=== PATIENT | female | born 1950 | race Caucasian/White ===

== ENCOUNTER 2017-12-10 09:36 | Outpatient (CLI) | payer MEDICARE, MEDICAID ==
--- NOTE | 2017-12-10 15:40 | MMO ---
MAMMOGRAM DIGITAL SCREENING BILATERAL: DATE: 12/10/17 HISTORY: 67-year-old female for routine bilateral screening mammogram. COMPARISON: 08/20/16 and 07/27/12. TECHNIQUE: Digital mammographic views. Computer-aided detection (CAD) utilized. FINDINGS: There are scattered areas of fibroglandular density. There is no evidence of suspicious mass, suspicious calcifications, or architectural distortion. The re is no significant interval change since the prior mammogram. IMPRESSION: 1. BIRADS 1 - Negative. 2. Recommendation: routine bilateral annual screening mammogram (unless the patient develops suspici ous clinical findings that would warrant earlier imaging follow up). dalila [] POS: [facility]
== END 2017-12-10 09:37 | disposition home or self-care (01) ==
LOC: SCSMAMMO 09:36
PROVIDERS: ATTEND Family Medicine
DX: Z12.31 Encounter for screening mammogram for malignant neoplasm of breast (principal)
CPT/HCPCS: 77067

== ENCOUNTER 2018-03-08 13:53 | Outpatient (CLI) | payer MEDICARE, MEDICAID ==
--- NOTE | 2018-03-08 15:54 | RAD ---
LEFT SHOULDER THREE VIEWS: History: M79.602, pain. Comparison: None. FINDINGS: There is a calcific tendinosis rotator cuff seen best on the internal image. No acute fracture or mal alignment. IMPRESSION: Mild calcific tendinosis. POS: [facility]
--- NOTE | 2018-03-08 15:57 | RAD ---
CERVICAL SPINE AP AND LATERAL STANDARD: Date: 03/08/18 HISTORY: N79.602, pain. COMPARISON: None. FINDINGS: There is extensive atherosclerotic plaque of the carotid arteries. No fracture. No malalignment. Moderate degenerative disc space height loss at C5-6 and C6-7. The open-mouth odontoid view is normal. IMPRESSION: Degenerative changes. No acute fracture or malalignment. POS: [facility]
== END 2018-03-08 13:54 | disposition home or self-care (01) ==
LOC: SCSRAD 13:53
PROVIDERS: ATTEND Family Medicine
DX: M79.602 Pain in left arm (principal); M47.892 Other spondylosis, cervical region; M75.32 Calcific tendinitis of left shoulder
CPT/HCPCS: 72040

== ENCOUNTER 2018-10-17 11:20 | Inpatient (IN) | payer MEDICARE, MEDICAID ==
[2018-10-17 12:19] LABS: #Basophils 0.1 thou/uL (0.0-0.2); #Eosinphils 0.1 thou/uL (0.0-0.7); #Lymphocytes 2.9 thou/uL (1.20-3.40); #Monocytes 0.7 thou/uL (0.11-0.59); #Neutrophils 3.7 thou/uL (1.40-6.50); %Eosinophils 0.7 % (0.0-10.0); %Lymphocytes 38.9 % (21.0-51.0); %Monocytes 9.4 % (0.0-10.0); %Neutrophils 49.9 % (42.0-75.0); Mean Corpuscular HGB CONC 32.4 g/dL (32.0-36.0); Mean Corpuscular Hemoglobin 27.5 pg (27.0-31.0); Mean Corpuscular Volume 84.8 fL (78.0-98.0); Mean Platelet Volume 7.3 fL (7.4-10.4); Platelet Count 245 thou/uL (130-400); RBC Distribution Width 13.4 % (11.5-14.5); White Blood Cell (WBC) Count 7.5 thou/uL (4.8-10.8)
[2018-10-17 12:36] LABS: CKMB 1.1 ng/mL (0-6.6); Troponin I Less than 0.010 ng/mL (< 0.028)
--- NOTE | 2018-10-17 12:37 | RAD ---
CHEST ONE VIEW: INDICATIONS: History of chest pain. Emergency room exam. COMPARISON: 07/09/2013 FINDINGS: The lungs are clear. The cardiomediastinal silhouette is within normal limits. No acute osseous abn ormality is evident. IMPRESSION: No acute cardiopulmonary abnormality. POS: [facility]
[2018-10-17 12:38] LABS: Bilirubin Small (Negative); Blood, Urine Trace (Negative); Glucose, Urine (Dipstick) Negative (Negative); Leukocyte Small (Negative); Nitrite Negative (Negative); Protein, Urine (Dipstick) Negative (Neg-Trace); Urobilinogen 0.2 mg/dL (0.2-1.0); pH, Urine 5.5 (5.0-9.0)
[2018-10-17 12:39] LABS: Clarity Hazy (Clear); Specific Gravity, Urine 1.024 (1.002-1.036)
[2018-10-17 12:40] LABS: Bacteria/HPF 1+ HPF (None Seen); RBC/HPF 0-3 HPF (0-3); Squamous Epithelial 0-3 HPF (0-3)
[2018-10-17 12:45] LABS: Anion Gap 14 mmol/L (10-20); BUN (Urea Nitrogen) 26 mg/dL (9.8-20.1); Calc. Creatinine Clearance 0 mL/min (70-130); Calcium 9.6 mg/dL (7.8-10.44); Carbon Dioxide 17 mmol/L (23-31); Chloride 110 mmol/L (98-107); Estimated GFR-MDRD 32; Glucose 179 mg/dL (80-115); Sodium 134 mmol/L (136-145)
[2018-10-17 12:47] LABS: Potassium 6.6 mmol/L (3.5-5.1)
[2018-10-17] MEDS ORDERED: Sodium Chloride 0.9% 100 ML ONE (12:57)
[2018-10-17] MEDS ORDERED: cefTRIAXone\\ROCEPHIN 1 GM VIAL ONE (12:57)
[2018-10-17 14:43] LABS: Anion Gap 10 mmol/L (10-20); BUN (Urea Nitrogen) 22 mg/dL (9.8-20.1); Calc. Creatinine Clearance 0 mL/min (70-130); Calcium 8.4 mg/dL (7.8-10.44); Carbon Dioxide 17 mmol/L (23-31); Chloride 116 mmol/L (98-107); Estimated GFR-MDRD 42; Glucose 109 mg/dL (80-115); Sodium 136 mmol/L (136-145)
[2018-10-17] MEDS ORDERED: Calcium Gluc 4.6 MEQ/10 ML (100 MG/ML) ONE (14:47)
[2018-10-17] MEDS ORDERED: Insulin Regular 300 UNITS/3 ML VIAL ONE (14:47)
[2018-10-17] MEDS ORDERED: Dextrose 50% Abboject 50 ML SYRINGE ONE (14:55)
[2018-10-17] MEDS ORDERED: Sodium Bicarb 50 MEQ/50 ML Abboject 8.4% SYRINGE ONE ×2 (15:07→15:08)
[2018-10-17 16:56] LABS: Anion Gap 10 mmol/L (10-20); BUN (Urea Nitrogen) 21 mg/dL (9.8-20.1); Calc. Creatinine Clearance 0 mL/min (70-130); Calcium 8.9 mg/dL (7.8-10.44); Carbon Dioxide 20 mmol/L (23-31); Chloride 117 mmol/L (98-107); Estimated GFR-MDRD 45; Glucose 78 mg/dL (80-115); Potassium 6.1 mmol/L (3.5-5.1); Sodium 141 mmol/L (136-145)
[2018-10-17 19:36] VITALS: BMI 34.3
[2018-10-17] MEDS: Sodium Bicarbonate 150 MEQ in Dextrose 5% in Water 1,000 ML IV SCH (20:10)
[2018-10-17 20:49] LABS: Anion Gap 11 mmol/L (10-20); BUN (Urea Nitrogen) 21 mg/dL (9.8-20.1); Calc. Creatinine Clearance 50 mL/min (70-130); Calcium 8.8 mg/dL (7.8-10.44); Carbon Dioxide 20 mmol/L (23-31); Chloride 115 mmol/L (98-107); Estimated GFR-MDRD 40; Glucose 118 mg/dL (80-115); Sodium 139 mmol/L (136-145)
[2018-10-17 21:01] LABS: Potassium 6.7 mmol/L (3.5-5.1)
[2018-10-18 01:08] LABS: Anion Gap 10 mmol/L (10-20); BUN (Urea Nitrogen) 22 mg/dL (9.8-20.1); Calc. Creatinine Clearance 54 mL/min (70-130); Calcium 8.7 mg/dL (7.8-10.44); Carbon Dioxide 25 mmol/L (23-31); Chloride 110 mmol/L (98-107); Estimated GFR-MDRD 44; Glucose 141 mg/dL (80-115); Potassium 5.3 mmol/L (3.5-5.1); Sodium 140 mmol/L (136-145)
[2018-10-18] MEDS: Sodium Bicarbonate 150 MEQ in Dextrose 5% in Water 1,000 ML IV SCH (03:49)
[2018-10-18] MEDS: Sodium Chloride 0.9% 1,000 ML IV SCH (05:44)
[2018-10-18 07:04] LABS: Anion Gap 11 mmol/L (10-20); BUN (Urea Nitrogen) 20 mg/dL (9.8-20.1); Calc. Creatinine Clearance 61 mL/min (70-130); Calcium 8.3 mg/dL (7.8-10.44); Carbon Dioxide 26 mmol/L (23-31); Chloride 108 mmol/L (98-107); Estimated GFR-MDRD 50; Glucose 162 mg/dL (80-115); Potassium 4.7 mmol/L (3.5-5.1); Sodium 140 mmol/L (136-145)
--- NOTE | 2018-10-18 07:51 | CON ---
DATE OF CONSULTATION: 10/17/2018 TYPE OF CONSULTATION: Nephrology CONSULTING PHYSICIAN: Dr. Arrieta. REASON FOR CONSULTATION: Severe hyperkalemia. REASON FOR ADMISSION: Weakness. HISTORY OF PRESENT ILLNESS: This is a 68-year-old female with history of hypertension, type 2 diabetes, hypothyroidism, hyperlipidemia, recent history of UTI, and chronic pain, who came to the hospital with weakness and multiple other complaints of fever, chills, and lightheadedness. The patient had 1 episode of diarrhea a few days back. The patient has been taking meloxicam, lisinopril, and Bactrim, which was stopped today, but she has been taking for last 5 days, started having weakness, feeling like her legs are giving away, and was evaluated and was found to have a potassium of 7.0. She was treated medically and her potassium got better to 6.1. Creatinine was 1.2. Nephrology was consulted. PAST MEDICAL HISTORY: Positive for hypertension, hypothyroidism, hyperlipidemia, chronic pain, and neuropathy. PAST SURGICAL HISTORY: Back surgery, carpel tunnel surgery, cholecystectomy, and tubal ligation. HOME MEDICATIONS: 1. Lyrica. 2. Levothyroxine. 3. Duloxetine. 4. Meloxicam. 5. Acyclovir. 6. Metoprolol. 7. Allopurinol. 8. Crestor. 9. Metformin. 10. VESIcare. 11. Lisinopril. 12. Diazepam. 13. Centrum. 14. Bactrim. ALLERGIES: ACTOS AND DEMEROL. SOCIAL HISTORY: No smoking, alcohol, or illicit drug use. FAMILY HISTORY: No history of any kidney disease. REVIEW OF SYSTEMS: CONSTITUTIONAL: Negative for weight loss or gain, ability to conduct usual activities. SKIN: Negative for rash, itching. EYES: Negative for double vision, pain. ENT/MOUTH: Negative for nose bleeding, neck stiffness, pain, tenderness. CARDIOVASCULAR: Negative for palpitations, dyspnea on exertion, orthopnea. RESPIRATORY: Negative for shortness of breath, wheezing, cough, hemoptysis, fever or night sweats. GASTROINTESTINAL: Negative for poor appetite, abdominal pain, heartburn, nausea, vomiting, constipation, or diarrhea. GENITOURINARY: Negative for urgency, frequency, dysuria, nocturia. MUSCULOSKELETAL: Negative for pain, swelling. NEUROLOGIC/PSYCHIATRIC: Negative for anxiety, depression. ALLERGY/IMMUNOLOGIC: Negative for skin rash, bleeding tendency. PHYSICAL EXAMINATION: GENERAL: Reveals an obese white female, in no apparent distress. VITAL SIGNS: Temperature 99, pulse 68, respiratory rate 16, and blood pressure 137/65. HEENT: Atraumatic and normocephalic. Oral mucosa is moist. NECK: Supple. CARDIOVASCULAR: S1 and S2 heard. RESPIRATORY: Clear. GASTROINTESTINAL: Abdomen is soft. MUSCULOSKELETAL: . DERMATOLOGIC: No skin rash. NEUROLOGIC: Alert and awake. PSYCHIATRIC: Mood and affect normal. LABORATORY DATA: Hemoglobin is 11.0. Potassium is 6.7, BUN is 21, creatinine is 1.3. ASSESSMENT AND PLAN: 1. Severe hyperkalemia. Agree with medical management. No acute indication for dialysis. Her creatinine is slightly elevated, most likely from Bactrim. Agree with holding Bactrim, meloxicam, and lisinopril and limit potassium intake. Agree with bicarb drip also. 2. Metabolic acidosis, agree with bicarb drip. 3. Acute kidney injury, most likely elevated creatinine from Bactrim. 4. Mild anemia. 5. Hypertension, stable. 6. Edema, controlled. 7. Urinary tract infection. Follow up cultures and continue antibiotics. 8. Continue close monitoring. Check BMP q.4 hours. Limit potassium intake. Continue bicarb drip and we will follow. Thank you for the consult. Job ID: [id number]
[2018-10-18] MEDS ORDERED: Fluticasone Propionate Nasal Spray 16 gm Bottle NASAL PRN (08:45)
[2018-10-18] MEDS ORDERED: Sodium Chloride 0.65% Nasal 44 ML BOT EA NARE PRN (08:47)
[2018-10-18] MEDS ORDERED: Ondansetron PF 4 MG/2 ML Vial IVP PRN (08:47)
[2018-10-18] MEDS ORDERED: Calcium Carbonate 500 MG ChewTAB PO PRN (08:47)
[2018-10-18] MEDS ORDERED: Senokot S 8.6-50 MG TAB PO PRN (08:47)
[2018-10-18] MEDS ORDERED: Nitroglycerin 0.4 MG TAB (25 Tab Bottle) SL PRN (08:47)
[2018-10-18] MEDS ORDERED: Bisacodyl 5 MG TAB PO PRN (08:47)
[2018-10-18] MEDS ORDERED: hydrALAZINE 20 MG/ML VIAL SLOW IVP PRN (08:47)
[2018-10-18] MEDS ORDERED: Benzonatate 100 MG CAP PO PRN (08:47)
[2018-10-18] MEDS ORDERED: Non-Formulary Item 1 EACH (Esomeprazole Magnesium [Nexium] 40 MG) PO SCH (09:00)
[2018-10-18 09:11] LABS: Anion Gap 11 mmol/L (10-20); BUN (Urea Nitrogen) 17 mg/dL (9.8-20.1); Calc. Creatinine Clearance 62 mL/min (70-130); Calcium 8.4 mg/dL (7.8-10.44); Carbon Dioxide 25 mmol/L (23-31); Chloride 107 mmol/L (98-107); Estimated GFR-MDRD 51; Glucose 142 mg/dL (80-115); Potassium 4.4 mmol/L (3.5-5.1); Sodium 139 mmol/L (136-145)
[2018-10-18] MEDS ORDERED: TROSPIUM 20 MG TABLET PO SCH (10:30)
[2018-10-18] MEDS ORDERED: Metoprolol Tartrate 25 MG TAB PO SCH (10:30)
[2018-10-18] MEDS ORDERED: DULoxetine 60 MG CAP PO SCH (10:30)
[2018-10-18] MEDS ORDERED: Acyclovir 400 mg Tablet PO SCH (10:30)
[2018-10-18] MEDS ORDERED: Multivitamin W/ Minerals 1 TAB PO SCH (10:30)
[2018-10-18] MEDS: Acetaminophen 500 MG TAB PO PRN (11:03)
[2018-10-18] MEDS: cefTRIAXone\\ROCEPHIN 1 GM in Sodium Chloride 0.9% 100 ML IVPB SCH (12:54)
[2018-10-18] MEDS: Pregabalin 50 MG CAP PO SCH ×2 (14:20→20:01)
[2018-10-18 14:47] LABS: Anion Gap 12 mmol/L (10-20); BUN (Urea Nitrogen) 15 mg/dL (9.8-20.1); Calc. Creatinine Clearance 67 mL/min (70-130); Calcium 8.1 mg/dL (7.8-10.44); Carbon Dioxide 25 mmol/L (23-31); Chloride 109 mmol/L (98-107); Estimated GFR-MDRD 55; Glucose 131 mg/dL (80-115); Potassium 4.9 mmol/L (3.5-5.1); Sodium 141 mmol/L (136-145)
--- NOTE | 2018-10-18 19:10 | HP ---
PRIMARY CARE PHYSICIAN: Dr. Lou. CHIEF COMPLAINT: Generalized weakness and lightheadedness of 1-week duration. HISTORY OF PRESENT ILLNESS: Ms. Farmer is a 68-year-old female with past medical history of hypertension, hypothyroidism, dyslipidemia, chronic pain, and neuropathy, who presented to the emergency room with complaints of weakness and subjective complaints of fever, chills, and lightheadedness. She reports that she recently had diarrhea a few days back. She gets urinary tract infections frequently. She has had bladder sling many years ago by Dr. An. Recently, she had another UTI and was given Bactrim for the treatment. She also has been taking meloxicam and lisinopril for the chronic aches and pains. Yesterday, she felt extremely weak and the symptoms have started about 5 days ago. She came to the ER and was found to have a potassium of 7.0. She was treated medically and her potassium got better to 6.1. Creatinine was also elevated at 1.2. Nephrology was consulted. She is being admitted for further evaluation. Fortunately, the patient has been up on the floor since last night and Nephrology has seen the patient and her potassium has improved to 4.9 with intervention and her renal failure has resolved. Her urinalysis and culture from 10/06/2018 showed E. coli, which was unfortunately resistant to the Bactrim she has received for so many days lending her with acute renal failure. PAST MEDICAL HISTORY: 1. Diabetes mellitus. 2. Hypothyroidism. 3. Hypertension. 4. Dyslipidemia. PAST SURGICAL HISTORY: 1. Back surgery. 2. Left TKR. 3. Carpal tunnel surgery x2. 4. Cholecystectomy. 5. Tubal ligation. 6. Bladder sling. PSYCHIATRIC HISTORY: Anxiety and bipolar disorder with depression. SOCIAL HISTORY: She lives by herself and has no history of drug, tobacco, or alcohol abuse. FAMILY HISTORY: No significant family history of any heart disease or stroke. Diabetes runs in the family. ALLERGIES: INCLUDE ACTOS AND DEMEROL. CURRENT MEDICATIONS: As listed below; 1. Ropinirole 2 mg at bedtime. 2. Metformin 500 p.o. b.i.d. 3. Bactrim 1 tablet p.o. b.i.d. 4. VESIcare 10 mg daily. 5. Crestor 10 mg daily. 6. Seroquel XR 50 mg daily. 7. Lyrica 100 mg p.o. daily. 8. Multivitamin daily. 9. Lopressor tartrate 25 b.i.d. 10. Meloxicam 15 mg daily. 11. Lisinopril 5 mg daily. 12. Levothyroxine 100 mcg daily. 13. Flonase daily b.i.d. p.r.n. 14. Nexium 40 mg daily. 15. Valium 5 mg p.o. b.i.d. 16. Cymbalta 60 mg daily. 17. Acyclovir 400 mg daily for suppressive therapy for oral sores. REVIEW OF SYSTEMS: A 12-point review of system is done. It is negative except for those mentioned in the history and physical. CODE STATUS: Full code discussed with the patient. LABORATORY EXAMINATION: CBC shows WBCs 7.5 and hemoglobin 11. Serum chemistries; initially, her potassium was 7.0, which has improved to 4.9. Her creatinine was 1.59 upon presentation, which is improved to 1.0. Troponin and CK-MB normal. Urinalysis; +1 bacteria, leukocyte esterase, and multiple wbc's. Chest x-ray, by my review, has no evidence of pleural effusion, edema, or infiltrate. PHYSICAL EXAMINATION: VITAL SIGNS: Most recent vital signs; temperature 98.9, pulse is 73, respirations 18, saturating 98% on room air, and blood pressure 160/71. GENERAL: She appears somewhat pale, weak, and tired, but in no acute distress. She is awake, alert, and oriented x3. HEENT: Mucous membrane is moist and pink. No oropharyngeal exudate or erythema. Head is normocephalic and atraumatic. Pupils equal and reactive to light and accommodation. Extraocular movements intact. NECK: Supple without any lymphadenopathy, JVD, or bruits. CHEST: Clear to auscultation without any wheezing, rales, or rhonchi. HEART: Rate and rhythm are regular without any murmurs, rubs, or gallops. ABDOMEN: Soft, nontender, and nondistended with positive bowel sounds. EXTREMITIES: Free of any cyanosis, clubbing, or edema. NEUROLOGIC: Nonfocal. SKIN: Free of any rashes or bruises. Feels warm and dry to touch. PSYCHIATRIC: Normal affect. IMPRESSION AND PLAN: 1. Hyperkalemia and acute renal insufficiency. This is likely iatrogenic from the use of meloxicam, lisinopril, and Bactrim on top of that. Her numbers have much improved with holding these medications and resuscitating her with IV fluids. She is also hemodynamically stable. We appreciate Nephrology input with this. Continue with normal saline at 50 mL per hour for now. I will continue to hold the lisinopril and stop her metformin, meloxicam, and Bactrim. 2. Urinary tract infection. Unfortunately, the Escherichia coli from the urine culture on 10/06 was resistant to bactrim. A new urine culture has been submitted and she has been started on Rocephin, to which the bacteria was sensitive to. We will follow the final culture results. 3. History of hypertension. Currently well controlled. We will restart her home medications. 4. History of peripheral neuropathy. We will restart her Lyrica and Cymbalta. I am not sure why she is on so many medications for neuropathy and yet seems to be poorly controlled. 5. Diabetes mellitus type 2. We will put her insulin sliding scale as we are holding her metformin for acute renal insufficiency. Accu-Cheks before meals and bedtime have been ordered. 6. Fibromyalgia. 7. Bipolar disorder. Restart home medications. 8. Dyslipidemia. Restart her home medications. 9. Code status: Full code discussed with the patient. 10. History of frequent urinary tract infections. DISPOSITION: Ms. Farmer has been admitted to the hospital with acute kidney insufficiency and hyperkalemia, which have since resolved. She will be transferred to medical floor. Estimated length of stay at this time is at least 2 to 3 midnights. Further management will depend upon her clinical course. Job ID: [id number]
[2018-10-18] MEDS: Metoprolol Tartrate 25 MG TAB PO SCH (20:01)
[2018-10-18] MEDS: TROSPIUM 20 MG TABLET PO SCH (20:03)
[2018-10-18] MEDS ORDERED: ROPINIROLE HCL 2 MG PO SCH ×2 (21:00)
[2018-10-18] MEDS ORDERED: QUEtiapine Fumarate ER 50 MG TAB PO SCH (21:00)
[2018-10-19] MEDS: Acetaminophen 500 MG TAB PO PRN ×2 (00:09→08:22)
[2018-10-19] MEDS: Sodium Chloride 0.9% 1,000 ML IV SCH (00:12)
[2018-10-19 08:00] LABS: Anion Gap 10 mmol/L (10-20); BUN (Urea Nitrogen) 12 mg/dL (9.8-20.1); Calc. Creatinine Clearance 62 mL/min (70-130); Carbon Dioxide 24 mmol/L (23-31); Chloride 110 mmol/L (98-107); Estimated GFR-MDRD 51; Glucose 112 mg/dL (80-115); Potassium 4.6 mmol/L (3.5-5.1); Sodium 139 mmol/L (136-145)
[2018-10-19] MEDS: TROSPIUM 20 MG TABLET PO SCH (08:17)
[2018-10-19] MEDS: Pregabalin 50 MG CAP PO SCH ×2 (08:17→16:04)
[2018-10-19] MEDS: Metoprolol Tartrate 25 MG TAB PO SCH (08:19)
[2018-10-19] MEDS ORDERED: DULoxetine 60 MG CAP PO SCH (09:00)
[2018-10-19] MEDS ORDERED: Acyclovir 400 mg Tablet PO SCH (09:00)
[2018-10-19] MEDS ORDERED: Levothyroxine Sodium 100 MCG TAB PO SCH (09:00)
[2018-10-19] MEDS ORDERED: Multivitamin W/ Minerals 1 TAB PO SCH (09:00)
[2018-10-19] MEDS ORDERED: Diazepam 5 MG TAB PO PRN (11:24)
[2018-10-19] MEDS ORDERED: Ketorolac Tromethamine 30 MG/ML VIAL IVP SCH (12:30)
[2018-10-19] MEDS ORDERED: Meloxicam 15 MG TAB PO SCH (12:30)
[2018-10-19] MEDS: cefTRIAXone\\ROCEPHIN 1 GM in Sodium Chloride 0.9% 100 ML IVPB SCH (12:52)
--- NOTE | 2018-10-19 13:18 | PRG ---
DATE OF SERVICE: 10/19/2018 SUBJECTIVE: A 68-year-old female is being seen for acute kidney injury. The patient denies any nausea, vomiting, or chest pain. OBJECTIVE: GENERAL: The patient is awake and alert. VITAL SIGNS: Pulse is 72, breathing is 16, and blood pressure 149/89. GENERAL APPEARANCE AND MENTAL STATUS: Fair. HEAD/NECK: Normocephalic. Atraumatic. EYES: EOMI. No deformity. EARS: Clear. No ulcers. NOSE: Intact. No lesions. MOUTH: Clear. No discharge. THROAT: Clear. No exudate. LUNGS: Clear. No crackles. CARDIAC: S1, S2. No rub. ABDOMEN: Benign. Bowel sounds positive. GENITALIA/RECTUM: Min absent. BACK/EXTREMITIES: Edema 0+. NEUROLOGICAL: Alert and motor intact. SKIN: LYMPHATICS: LABORATORY DATA: Hemoglobin 11. Creatinine is 1.0. ASSESSMENT AND PLAN: 1. Acute kidney injury, resolved. 2. Hypertension, stable. 3. Anemia, stable. 4. Medications based on GFR as appropriate. I will sign off on this patient. Please reconsult as needed. Job ID: [id number]
[2018-10-19 16:19] VITALS: BP 123/60; TEMP 98.8
--- NOTE | 2018-10-19 17:57 | DIS ---
DATE OF ADMISSION: 10/17/2018 DATE OF DISCHARGE: 10/19/2018 DISCHARGE DISPOSITION: Home. FOLLOWUP: 1. Follow up with primary care physician, Dr. Lou in 1 week. 2. Follow up with Nephrology, Dr. Camejo after 1 to 2 weeks. 3. Repeat basic metabolic profile after one week is recommended. Primary care physician advised to follow. ALLERGIES: THE PATIENT IS ALLERGIC TO DEMEROL AND PIOGLITAZONE. THE PATIENT WAS SEEN AND EXAMINED ON THE DAY OF DISCHARGE. DENIES ANY NEW COMPLAINTS. NO CHEST PAIN, SHORTNESS OF BREATH, OR PALPITATIONS. PHYSICAL EXAMINATION: VITAL SIGNS: Showed temperature 98.3, respiration of 19, pulse rate of 70, blood pressure of 137/61. LABORATORY DATA: Lab findings: Potassium on the day of discharge is 4.6, maximum potassium was 7.0. Creatinine on the day of discharge is 1.08, on admission was 1.59. Troponin was negative. Urinalysis showed 4 to 6 wbc's with 1+ bacteria. Urine culture at 24 hours has been negative. Recent urine culture as an outpatient showed E coli, sensitive to cephalosporins. INPATIENT SENIOR STATISTICAL PROGRAMMER: Nephrology, Dr. Camejo. BRIEF HOSPITAL COURSE: The patient is a 68-year-old female with diabetes mellitus, type 2; hypertension; and recent UTI, on Bactrim; presented to the hospital with generalized weakness and lightheadedness of 1 week duration. Workup in the emergency room was consistent with life-threatening hyperkalemia with potassium of 7.0 with acute kidney injury. Bactrim and NITESH inhibitor were discontinued. She was started on sodium bicarbonate along with Kayexalate. She also received insulin, D50, and nebulizer treatment in the emergency room. Her potassium levels have been normal over the past 24 hours. She has been cleared by Nephrology for discharge. NITESH inhibitors have been discontinued per Nephrology recommendation. She would benefit from repeat labs next week. Blood pressure on the day of discharge is 123/60. For this reason, no other blood pressure medications were added. All other home medications have been resumed. She was advised to discontinue NSAIDs. Due to recent UTI, she was started on Omnicef for next 1 week. She was advised to follow up with the primary urologist, Dr. An as scheduled. FINAL DIAGNOSES: 1. Acute hyperkalemia with acute kidney injury, probably exacerbated by NITESH inhibitor and Bactrim. 2. Escherichia coli urinary tract infection. 3. Hypertension. 4. Diabetes mellitus, type 2. 5. Fibromyalgia. 6. Bipolar disorder. 7. Dyslipidemia. 8. Obesity with a BMI of 34.5. 9. Chronic kidney disease, stage 3. 10. Metabolic acidosis secondary to renal failure. 11. Chronic anemia. Plan of care was discussed with the patient in detail. She stated understanding. Job ID: [id number]
[2018-10-20] MEDS ORDERED: Levothyroxine Sodium 100 MCG TAB PO SCH (06:00)
[2018-10-20] MEDS ORDERED: Meloxicam 15 MG TAB PO SCH (09:00)
--- NOTE | 2018-10-20 18:14 | PRG ---
DATE OF SERVICE: 10/18/2018 SUBJECTIVE: Patient was seen and examined at bedside and overnight events noted. Patient denies any shortness of breath or chest pain or palpitation. No history of nausea or vomiting or diarrhea or fever or chills or cramps. OBJECTIVE: GENERAL: This is a well-built female, in no apparent distress. VITAL SIGNS: Temperature . Heart rate . Respiratory rate . Blood pressure 130/61. HEENT: Atraumatic, normocephalic. Oral mucosa is moist NECK: Supple. CARDIOVASCULAR: S1, S2 heard. Rate and rhythm regular. RESPIRATORY: Clear to auscultation. GASTROINTESTINAL: Abdomen is soft. MUSCULOSKELETAL: No tenderness. No edema. DERMATOLOGIC: No skin rash. NEUROLOGIC: Alert and awake and oriented X3. No focal neurologic deficits. Moving all the extremities. PSYCHIATRIC: Mood and affect normal. LABORATORY DATA: Potassium is 4.4, BUN is 17, and creatinine is 1.08. ASSESSMENT AND PLAN: 1. Severe hyperkalemia, much better. 2. Metabolic acidosis . 3. Acute kidney injury . 4. Urinary tract infection. Follow up cultures. 5. Potassium is better. Limit potassium intake and we will follow. Job ID: [id number]
--- NOTE | 2018-10-23 12:17 | EKG ---
Test Reason : Blood Pressure : / mmHG Vent. Rate : 055 BPM Atrial Rate : 055 BPM P-R Int : 128 ms QRS Dur : 076 ms QT Int : 400 ms P-R-T Axes : 038 -05 013 degrees QTc Int : 382 ms Sinus bradycardia Inferior infarct , age undetermined Abnormal ECG Confirmed by BRIANNE AYALA, EMETERIO Carrillo ([id number]), sound editor NAHOMY MARTINEZ ([id number]) on 10/23/2018 12:16:27 PM Referred By: Confirmed By:EMETERIO DECKER MD
== END 2018-10-19 18:41 | disposition home or self-care (01) | DRG 683 ==
LOC: SCSER 11:20 → SCSEROBS 15:09 → 2NO 19:22 → T4-B 10-18 23:41
PROVIDERS: ADMIT Internal Medicine; ATTEND Internal Medicine
DX: N17.9 Acute kidney failure, unspecified (principal); N39.0 Urinary tract infection, site not specified; E87.2 Acidosis; E78.5 Hyperlipidemia, unspecified; E03.9 Hypothyroidism, unspecified; G89.29 Other chronic pain; G62.9 Polyneuropathy, unspecified; Z96.652 Presence of left artificial knee joint; Z79.899 Other long term (current) drug therapy; Z79.84 Long term (current) use of oral hypoglycemic drugs; Z79.51 Long term (current) use of inhaled steroids; E87.5 Hyperkalemia; B96.20 Unspecified Escherichia coli [E. coli] as the cause of diseases classified elsewhere; M79.7 Fibromyalgia; E66.9 Obesity, unspecified; Z68.34 Body mass index [BMI] 34.0-34.9, adult; N18.3 Chronic kidney disease, stage 3 (moderate); E11.22 Type 2 diabetes mellitus with diabetic chronic kidney disease; I12.9 Hypertensive chronic kidney disease with stage 1 through stage 4 chronic kidney disease, or unspecified chronic kidney disease; D64.9 Anemia, unspecified
CPT/HCPCS: 36415; 36416; 71045; 80048; 81003; 81015; 82553; 84484; 85025; 87086; 90471; 90662; 93005; A4353; G0008; G8978-GP-CJ; G8979-GP-CJ; G8980-GP-CJ; J0360; J0696; J1815; J1885; J7050; J7070

== ENCOUNTER 2019-02-02 16:03 | Emergency (ER) | payer MEDICARE, MEDICAID ==
--- NOTE | 2019-02-02 18:08 | RAD ---
FOUR VIEWS LEFT KNEE: 02/02/19 HISTORY: Fall. AP, lateral and both oblique views left knee is obtained. Four views left knee demonstrates a left knee arthroplasty. No evidence of acute fractures or bony le sions seen. The patella is intact. Femoral and tibial components demonstrate no evidence of fractures or loosening. IMPRESSION: Normal four views left knee. POS: [facility]
--- NOTE | 2019-02-02 18:12 | RAD ---
FOUR VIEWS RIGHT KNEE: 02/02/19 HISTORY: Right knee pain. Fall. AP, lateral, and both oblique views right knee obtained. Four views right knee demonstrate joint space narrowing in the medial compartment of the right knee c ompatible with osteoarthritis. No evidence of acute fracture fractures or bony lesions seen. The rust lla is unremarkable. IMPRESSION: No evidence of acute right knee abnormality seen. POS: [facility]
== END 2019-02-02 18:39 | disposition home or self-care (01) ==
LOC: ERS 16:03
DX: S50.312A Abrasion of left elbow, initial encounter (principal); S50.311A Abrasion of right elbow, initial encounter; M25.561 Pain in right knee; M25.562 Pain in left knee; M79.641 Pain in right hand; M79.642 Pain in left hand; F41.9 Anxiety disorder, unspecified; F31.9 Bipolar disorder, unspecified; E78.5 Hyperlipidemia, unspecified; E03.9 Hypothyroidism, unspecified; I10 Essential (primary) hypertension; E11.9 Type 2 diabetes mellitus without complications; W01.0XXA Fall on same level from slipping, tripping and stumbling without subsequent striking against object, initial encounter

== ENCOUNTER 2021-11-19 11:35 | Outpatient (CLI) | payer OTHER | END 2021-11-19 11:36 | disposition home or self-care (01) | LOC: DTY/OP 11:35 | PROVIDERS: ATTEND Student in an Organized Health Care Education/Training Program | DX: E11.29 Type 2 diabetes mellitus with other diabetic kidney complication (principal) | CPT/HCPCS: 97802 ==

== ENCOUNTER 2022-03-14 21:06 | Emergency (ER) | payer MEDICARE, OTHER ==
[2022-03-14] MEDS ORDERED: Boostrix 0.5 ML (Tdap) VIAL ONE (23:44)
== END 2022-03-14 23:55 | disposition home or self-care (01) ==
LOC: ERS 21:06
DX: S61.201A Unspecified open wound of left index finger without damage to nail, initial encounter (principal); E11.9 Type 2 diabetes mellitus without complications; E03.9 Hypothyroidism, unspecified; E78.5 Hyperlipidemia, unspecified; I10 Essential (primary) hypertension; W45.8XXA Other foreign body or object entering through skin, initial encounter
CPT/HCPCS: 90471; 90715

== ENCOUNTER 2022-03-30 15:24 | Emergency (ER) | payer MEDICARE, OTHER ==
[2022-03-30] MEDS ORDERED: HYDROcodone/Acetaminophen 5/325 mg Tablet ONE (16:00)
[2022-03-30] MEDS ORDERED: Ketorolac Tromethamine 30 MG/ML VIAL ONE (17:20)
== END 2022-03-30 18:34 | disposition home or self-care (01) ==
LOC: ERS 15:24
DX: S39.012A Strain of muscle, fascia and tendon of lower back, initial encounter (principal); S70.02XA Contusion of left hip, initial encounter; S70.01XA Contusion of right hip, initial encounter; W18.30XA Fall on same level, unspecified, initial encounter; Y93.E1 Activity, personal bathing and showering; Y92.039 Unspecified place in apartment as the place of occurrence of the external cause; E03.9 Hypothyroidism, unspecified; E78.5 Hyperlipidemia, unspecified; I12.9 Hypertensive chronic kidney disease with stage 1 through stage 4 chronic kidney disease, or unspecified chronic kidney disease; E11.22 Type 2 diabetes mellitus with diabetic chronic kidney disease; E11.40 Type 2 diabetes mellitus with diabetic neuropathy, unspecified; N18.9 Chronic kidney disease, unspecified; Z79.84 Long term (current) use of oral hypoglycemic drugs; Z79.899 Other long term (current) drug therapy
CPT/HCPCS: 72128; 72131; 72192; 93005; 96372; J1885

== ENCOUNTER 2022-06-20 13:41 | Outpatient (CLI) | payer OTHER | END 2022-06-20 13:42 | disposition home or self-care (01) | LOC: BICMAMMO 13:41 | PROVIDERS: ATTEND Student in an Organized Health Care Education/Training Program | DX: Z12.31 Encounter for screening mammogram for malignant neoplasm of breast (principal); Z13.820 Encounter for screening for osteoporosis; M85.851 Other specified disorders of bone density and structure, right thigh; M85.852 Other specified disorders of bone density and structure, left thigh; Z78.0 Asymptomatic menopausal state | CPT/HCPCS: 77063; 77067; 77080 ==

== ENCOUNTER 2022-07-16 18:07 | Emergency (ER) | payer OTHER ==
[2022-07-16 19:30] LABS: #Eosinphils 0.2 thou/uL (0.0-0.7); #Lymphocytes 3.1 thou/uL (1.20-3.40); #Monocytes 0.8 thou/uL (0.11-0.59); #Neutrophils 3.5 thou/uL (1.40-6.50); %Basophils 0.6 % (0.0-1.0); %Eosinophils 2.3 % (0.0-10.0); %Lymphocytes 40.6 % (21.0-51.0); %Neutrophils 46.5 % (42.0-75.0); Hemoglobin 12.5 g/dL (12.0-16.0); Mean Corpuscular HGB CONC 33.7 g/dL (32.0-36.0); Mean Platelet Volume 8.4 fL (7.4-10.4); Platelet Count 195 thou/uL (130-400); RBC Distribution Width 13.9 % (11.5-14.5); Red Blood Cell (RBC) Count 4.16 mill/uL (4.20-5.40); White Blood Cell (WBC) Count 7.6 thou/uL (4.8-10.8)
[2022-07-16 19:52] LABS: ALT (SGPT) 35 U/L (8-55); AST (SGOT) 32 U/L (5-34); Alkaline Phosphatase 122 U/L (40-110); Anion Gap 16 mmol/L (10-20); BUN (Urea Nitrogen) 24 mg/dL (9.8-20.1); Bilirubin, Total 0.4 mg/dL (0.2-1.2); Calc. Creatinine Clearance 0 mL/min (70-130); Carbon Dioxide 25 mmol/L (23-31); Chloride 101 mmol/L (98-107); Estimated GFR 43; Globulin 2.7 g/dL (2.4-3.5); Glucose 210 mg/dL (83-110); Potassium 4.4 mmol/L (3.5-5.1); Protein, Total 6.7 g/dL (5.8-8.1); Sodium 138 mmol/L (136-145)
[2022-07-16 21:42] LABS: Bacteria/HPF None Seen HPF (None Seen); Bilirubin Negative (Negative); Blood, Urine Negative (Negative); Clarity Clear (Clear); Glucose, Urine (Dipstick) Greater than 1000 mg/dL (Negative); Ketone, Urine Negative (Negative); Leukocyte 75 Leu/uL (Negative); Nitrite Negative (Negative); Protein, Urine (Dipstick) Negative (Neg-Trace); RBC/HPF 0-3 HPF (0-3); Squamous Epithelial 0-3 HPF (0-3); Urobilinogen Normal mg/dL (Less than 2); pH, Urine 5.5 (5.0-9.0)
== END 2022-07-16 22:08 | disposition left against medical advice (07) ==
LOC: ERS 18:07
DX: Z53.21 Procedure and treatment not carried out due to patient leaving prior to being seen by health care provider (principal)
CPT/HCPCS: 36415; 36416; 80053; 81003; 81015; 82010; 85025

== ENCOUNTER 2022-11-20 19:02 | Emergency (ER) | payer OTHER ==
[2022-11-20] MEDS ORDERED: HYDROcodone/Acetaminophen 5/325 mg Tablet ONE (19:57)
== END 2022-11-20 20:57 | disposition home or self-care (01) ==
LOC: ERS 19:02
DX: S00.83XA Contusion of other part of head, initial encounter (principal); S00.31XA Abrasion of nose, initial encounter; S50.311A Abrasion of right elbow, initial encounter; E78.00 Pure hypercholesterolemia, unspecified; E03.9 Hypothyroidism, unspecified; I10 Essential (primary) hypertension; W19.XXXA Unspecified fall, initial encounter
CPT/HCPCS: 70450

== ENCOUNTER 2022-11-27 14:16 | Inpatient (IN) | payer OTHER, MEDICAID ==
[2022-11-27 14:55] LABS: #Eosinphils 0.1 thou/uL (0.0-0.7); #Lymphocytes 2.7 thou/uL (1.20-3.40); #Monocytes 0.6 thou/uL (0.11-0.59); #Neutrophils 4.9 thou/uL (1.40-6.50); %Basophils 0.4 % (0.0-1.0); %Eosinophils 1.7 % (0.0-10.0); %Lymphocytes 31.8 % (21.0-51.0); %Monocytes 7.5 % (0.0-10.0); %Neutrophils 58.6 % (42.0-75.0); Hemoglobin 14.4 g/dL (12.0-16.0); Mean Corpuscular HGB CONC 33.4 g/dL (32.0-36.0); Mean Corpuscular Hemoglobin 30.3 pg (27.0-31.0); Mean Corpuscular Volume 90.7 fl (78.0-98.0); Mean Platelet Volume 8.6 fL (7.4-10.4); Platelet Count 153 10x3/uL (130-400); RBC Distribution Width 13.7 % (11.5-14.5); Red Blood Cell (RBC) Count 4.76 mill/uL (4.20-5.40); White Blood Cell (WBC) Count 8.4 10x3/uL (4.8-10.8)
[2022-11-27 15:21] LABS: ALT (SGPT) 59 U/L (8-55); AST (SGOT) 47 U/L (5-34); Albumin 4.3 g/dL (3.4-4.8); Alkaline Phosphatase 175 U/L (40-110); Anion Gap 15 mmol/L (10-20); BUN (Urea Nitrogen) 24 mg/dL (9.8-20.1); Bilirubin, Total 0.8 mg/dL (0.2-1.2); Calc. Creatinine Clearance 0 mL/min (70-130); Calcium 11.1 mg/dL (7.8-10.44); Carbon Dioxide 30 mmol/L (23-31); Chloride 90 mmol/L (98-107); Estimated GFR 35; Globulin 3.7 g/dL (2.4-3.5); Potassium 4.2 mmol/L (3.5-5.1); Sodium 131 mmol/L (136-145)
[2022-11-27 15:48] LABS: Glucose 523 mg/dL (83-110)
[2022-11-27] MEDS ORDERED: HumaLOG 300 UNITS/3 ML VIAL SC PRN (17:26)
[2022-11-27] MEDS ORDERED: Dextrose 50% Abboject 50 ML SYRINGE SLOW IVP PRN (17:26)
[2022-11-27] MEDS ORDERED: Dextrose 5% in Water 1,000 ML IV PRN (17:26)
[2022-11-27] MEDS ORDERED: Insulin Glargine 30 UNITS/0.3 ML VIAL SC SCH (17:44)
[2022-11-27 17:50] LABS: Hemoglobin A1c 11.7 % (4.0-6.0)
[2022-11-27 17:59] LABS: Cardiac Risk 1.9 (Less than 4.5)
[2022-11-27 18:02] LABS: Bilirubin Negative (Negative); Blood, Urine Negative (Negative); Clarity Clear (Clear); Glucose, Urine (Dipstick) Greater than 1000 mg/dL (Negative); Ketone, Urine Negative (Negative); Leukocyte Negative Leu/uL (Negative); Nitrite Negative (Negative); Protein, Urine (Dipstick) Negative (Neg-Trace); Specific Gravity, Urine 1.013 (1.002-1.036); Urobilinogen Normal mg/dL (Less than 2); pH, Urine 5.5 (5.0-9.0)
[2022-11-27 20:03] VITALS: BMI 31.4
[2022-11-27] MEDS: Rosuvastatin 10 MG TAB PO SCH (20:19)
[2022-11-27] MEDS: Pregabalin 75 MG CAP PO SCH (20:19)
[2022-11-27] MEDS: rOPINIRole HCl 2 MG TAB PO SCH (20:19)
[2022-11-27] MEDS: traZODone HCl 50 MG TAB PO SCH (20:19)
[2022-11-27] MEDS: Clotrimazole 1 % Cream 30 GM TUBE TOP SCH (20:20)
[2022-11-27] MEDS: HumaLOG 300 UNITS/3 ML VIAL SC PRN (20:20)
[2022-11-27 21:53] LABS: Anion Gap 12 mmol/L (10-20); BUN (Urea Nitrogen) 19 mg/dL (9.8-20.1); Calc. Creatinine Clearance 62 mL/min (70-130); Calcium 8.4 mg/dL (7.8-10.44); Carbon Dioxide 25 mmol/L (23-31); Chloride 103 mmol/L (98-107); Estimated GFR 56; Glucose 320 mg/dL (83-110); Potassium 3.5 mmol/L (3.5-5.1); Sodium 136 mmol/L (136-145)
[2022-11-28] MEDS: Levothyroxine Sodium 75 MCG TAB PO SCH (04:54)
[2022-11-28] MEDS: HumaLOG 300 UNITS/3 ML VIAL SC PRN ×3 (05:08→21:00)
[2022-11-28] MEDS ORDERED: Diclofenac 1% 100 GM GEL TP PRN (05:18)
[2022-11-28] MEDS ORDERED: Ibuprofen 600 MG TAB PO SCH (05:30)
[2022-11-28 06:33] LABS: #Eosinphils 0.2 thou/uL (0.0-0.7); #Lymphocytes 2.5 thou/uL (1.20-3.40); #Monocytes 0.4 thou/uL (0.11-0.59); #Neutrophils 3.5 thou/uL (1.40-6.50); %Basophils 0.4 % (0.0-1.0); %Eosinophils 2.7 % (0.0-10.0); %Lymphocytes 38.7 % (21.0-51.0); %Monocytes 5.7 % (0.0-10.0); %Neutrophils 52.5 % (42.0-75.0); Hemoglobin 11.7 g/dL (12.0-16.0); Mean Corpuscular HGB CONC 33.9 g/dL (32.0-36.0); Mean Corpuscular Hemoglobin 31.2 pg (27.0-31.0); Mean Corpuscular Volume 92.3 fl (78.0-98.0); Mean Platelet Volume 8.5 fL (7.4-10.4); Platelet Count 122 10x3/uL (130-400); RBC Distribution Width 13.6 % (11.5-14.5); Red Blood Cell (RBC) Count 3.75 mill/uL (4.20-5.40); White Blood Cell (WBC) Count 6.6 10x3/uL (4.8-10.8)
[2022-11-28 07:01] LABS: ALT (SGPT) 34 U/L (8-55); AST (SGOT) 23 U/L (5-34); Albumin 3.2 g/dL (3.4-4.8); Alkaline Phosphatase 96 U/L (40-110); Anion Gap 9 mmol/L (10-20); BUN (Urea Nitrogen) 15 mg/dL (9.8-20.1); Bilirubin, Total 0.6 mg/dL (0.2-1.2); Calc. Creatinine Clearance 71 mL/min (70-130); Calcium 8.4 mg/dL (7.8-10.44); Carbon Dioxide 28 mmol/L (23-31); Chloride 104 mmol/L (98-107); Estimated GFR 67; Globulin 2.3 g/dL (2.4-3.5); Glucose 271 mg/dL (83-110); Potassium 3.7 mmol/L (3.5-5.1); Protein, Total 5.5 g/dL (5.8-8.1); Sodium 137 mmol/L (136-145)
[2022-11-28] MEDS: Multivitamin W/ Minerals 1 TAB PO SCH (08:30)
[2022-11-28] MEDS: Aripiprazole 10 MG TAB PO SCH (08:30)
[2022-11-28] MEDS: Furosemide 20 MG TAB PO SCH (08:30)
[2022-11-28] MEDS: Acyclovir 400 mg Tablet PO SCH (08:30)
[2022-11-28] MEDS: Loratadine 10 MG TAB PO SCH (08:30)
[2022-11-28] MEDS: Potassium Chloride 20 MEQ TAB PO SCH (08:31)
[2022-11-28] MEDS: Lidocaine 5% Patch TD SCH (08:31)
[2022-11-28] MEDS: DULoxetine 60 MG CAP PO SCH (08:31)
[2022-11-28] MEDS: Pregabalin 75 MG CAP PO SCH ×3 (08:31→20:58)
[2022-11-28] MEDS ORDERED: Insulin Glargine 30 UNITS/0.3 ML VIAL SC SCH ×2 (09:00)
[2022-11-28] MEDS: Fluticasone Propionate Nasal Spray 16 gm Bottle NASAL SCH (11:49)
[2022-11-28] MEDS: Clotrimazole 1 % Cream 30 GM TUBE TOP SCH ×2 (11:49→21:01)
[2022-11-28] MEDS ORDERED: Acetaminophen 325 MG TAB PO SCH (19:45)
[2022-11-28] MEDS: traZODone HCl 50 MG TAB PO SCH (20:58)
[2022-11-28] MEDS: Rosuvastatin 10 MG TAB PO SCH (20:59)
[2022-11-28] MEDS ORDERED: Transdermal Patch Removal TOP SCH (21:00)
[2022-11-28] MEDS: rOPINIRole HCl 2 MG TAB PO SCH (21:00)
[2022-11-29] MEDS: Levothyroxine Sodium 75 MCG TAB PO SCH (05:32)
[2022-11-29] MEDS: HumaLOG 300 UNITS/3 ML VIAL SC PRN (05:33)
[2022-11-29] MEDS: DULoxetine 60 MG CAP PO SCH (08:34)
[2022-11-29] MEDS: Loratadine 10 MG TAB PO SCH (08:34)
[2022-11-29] MEDS: Multivitamin W/ Minerals 1 TAB PO SCH (08:34)
[2022-11-29] MEDS: Potassium Chloride 20 MEQ TAB PO SCH (08:34)
[2022-11-29] MEDS: Furosemide 20 MG TAB PO SCH (08:35)
[2022-11-29] MEDS: Pregabalin 75 MG CAP PO SCH (08:35)
[2022-11-29] MEDS: Aripiprazole 10 MG TAB PO SCH (08:35)
[2022-11-29] MEDS: Acyclovir 400 mg Tablet PO SCH (08:36)
[2022-11-29] MEDS: Clotrimazole 1 % Cream 30 GM TUBE TOP SCH (08:36)
[2022-11-29] MEDS: Fluticasone Propionate Nasal Spray 16 gm Bottle NASAL SCH (08:37)
[2022-11-29] MEDS ORDERED: Insulin Glargine 30 UNITS/0.3 ML VIAL SC SCH (09:00)
[2022-11-29] MEDS ORDERED: Lisinopril 5 MG TAB PO SCH (09:00)
[2022-11-29] MEDS: Lidocaine 5% Patch TD SCH (09:14)
[2022-11-29 14:44] VITALS: BP 129/78; TEMP 98.1
== END 2022-11-29 14:21 | disposition home or self-care (01) | DRG 638 ==
LOC: ERS 14:16 → T4-A 16:45 → OBSVTOIN 11-29 11:58
PROVIDERS: ADMIT Family Medicine; ATTEND Emergency Medicine
DX: E11.65 Type 2 diabetes mellitus with hyperglycemia (principal); I13.0 Hypertensive heart and chronic kidney disease with heart failure and stage 1 through stage 4 chronic kidney disease, or unspecified chronic kidney disease; I50.32 Chronic diastolic (congestive) heart failure; N17.9 Acute kidney failure, unspecified; K57.92 Diverticulitis of intestine, part unspecified, without perforation or abscess without bleeding; E11.22 Type 2 diabetes mellitus with diabetic chronic kidney disease; R74.01 Elevation of levels of liver transaminase levels; E03.9 Hypothyroidism, unspecified; E78.5 Hyperlipidemia, unspecified; K21.9 Gastro-esophageal reflux disease without esophagitis; G47.00 Insomnia, unspecified; R32 Unspecified urinary incontinence; E11.42 Type 2 diabetes mellitus with diabetic polyneuropathy; K76.0 Fatty (change of) liver, not elsewhere classified; K74.60 Unspecified cirrhosis of liver; M79.7 Fibromyalgia; N18.31 Chronic kidney disease, stage 3a; Z96.652 Presence of left artificial knee joint; E83.52 Hypercalcemia; M25.519 Pain in unspecified shoulder; I87.2 Venous insufficiency (chronic) (peripheral); Z79.899 Other long term (current) drug therapy; Z79.4 Long term (current) use of insulin; Z79.890 Hormone replacement therapy; Z98.51 Tubal ligation status; Z90.49 Acquired absence of other specified parts of digestive tract; Z82.49 Family history of ischemic heart disease and other diseases of the circulatory system; Z80.9 Family history of malignant neoplasm, unspecified; Z98.890 Other specified postprocedural states
CPT/HCPCS: 36415; 36416; 71045; 76705; 80053; 80061; 81003; 82010; 83036; 83605; 84484; 85025; 93005; J1815

== ENCOUNTER 2024-01-14 14:10 | Inpatient (IN) | payer MEDICARE, OTHER ==
[2024-01-14 14:44] LABS: #Monocytes 0.4 thou/uL (0.11-0.59); #Neutrophils 11.3 thou/uL (1.40-6.50); %Basophils 0.2 % (0.0-1.0); %Eosinophils 0.2 % (0.0-10.0); %Lymphocytes 4.2 % (21.0-51.0); %Monocytes 2.9 % (0.0-10.0); %Neutrophils 91.5 % (42.0-75.0); Hematocrit 39.6 % (36.0-47.0); Hemoglobin 13.1 g/dL (12.0-16.0); Mean Corpuscular HGB CONC 33.1 g/dL (32.0-36.0); Mean Corpuscular Hemoglobin 29.5 pg (27.0-31.0); Mean Corpuscular Volume 89.2 fl (78.0-98.0); Platelet Count 142 10x3/uL (130-400); RBC Distribution Width 14.1 % (11.5-14.5); Red Blood Cell (RBC) Count 4.44 mill/uL (4.20-5.40); White Blood Cell (WBC) Count 12.3 10x3/uL (4.8-10.8)
[2024-01-14] MEDS ORDERED: Morphine 4 MG/ML VIAL ONE (14:54)
[2024-01-14] MEDS ORDERED: Sodium Chloride 0.9% 100 ML ONE ×2 (14:54→15:16)
[2024-01-14] MEDS ORDERED: cefTRIAXone (ROCEPHIN) 2 GM VIAL ONE (14:54)
[2024-01-14 15:11] LABS: ALT (SGPT) 37 U/L (8-55); AST (SGOT) 46 U/L (5-34); Albumin 3.8 g/dL (3.4-4.8); Alkaline Phosphatase 172 U/L (40-110); Anion Gap 17 mmol/L (10-20); BUN (Urea Nitrogen) 32 mg/dL (9.8-20.1); Bilirubin, Total 1.8 mg/dL (0.2-1.2); Calc. Creatinine Clearance 0 mL/min (70-130); Calcium 9.7 mg/dL (7.8-10.44); Carbon Dioxide 30 mmol/L (23-31); Chloride 94 mmol/L (98-107); Estimated GFR 29; Globulin 3.4 g/dL (2.4-3.5); Glucose 209 mg/dL (83-110); Potassium 4.6 mmol/L (3.5-5.1); Protein, Total 7.2 g/dL (5.8-8.1); Sodium 136 mmol/L (136-145)
[2024-01-14] MEDS ORDERED: Cefepime 2 GM VIAL ONE (15:11)
[2024-01-14] MEDS ORDERED: fentaNYL 50 mcg/mL 1 mL Vial ONE (15:40)
[2024-01-14 16:11] LABS: Bilirubin Negative (Negative); Blood, Urine 1+ (Negative); CAUTI Indications for Culture Dysuria,urgency,freq; Clarity Clear (Clear); Glucose, Urine (Dipstick) Normal (Negative); Ketone, Urine Trace mg/dL (Negative); Leukocyte 250 Leu/uL (Negative); Nitrite Negative (Negative); Protein, Urine (Dipstick) 70 mg/dL (Neg-Trace); Specific Gravity, Urine 1.014 (1.002-1.036); Squamous Epithelial 0-3 HPF (0-3); WBC/HPF Greater than 50 HPF (0-3)
[2024-01-14 16:12] LABS: Bacteria/HPF 1+ HPF (None Seen)
[2024-01-14 16:13] LABS: Transitional Epithelial 0-3 HPF (None Seen); Urine Culture Reflex Yes Yes
[2024-01-14 16:17] LABS: Influenza A by NAA Not Detected (NotDetected); Influenza B by NAA Not Detected (NotDetected); SARS-CoV-2 NAA Rapid Test Not Detected (NotDetected)
[2024-01-14] MEDS ORDERED: NOREPINEPHRINE 8 MG/250 ML-D5W 250 ML ONE (16:57)
[2024-01-14] MEDS ORDERED: Ondansetron PF 4 MG/2 ML Vial IVP PRN (17:10)
[2024-01-14] MEDS ORDERED: Acetaminophen 650 MG Suppository PR PRN (17:10)
[2024-01-14] MEDS ORDERED: Ondansetron ODT 4 MG TAB PO PRN (17:10)
[2024-01-14] MEDS ORDERED: Dextrose 5% in Water 1,000 ML IV PRN (17:46)
[2024-01-14] MEDS ORDERED: Dextrose 50% Abboject 50 ML SYRINGE SLOW IVP PRN (17:46)
[2024-01-14] MEDS ORDERED: Glucagon 1 MG/ML KIT IM PRN (17:46)
[2024-01-14] MEDS ORDERED: NOREPINEPHRINE 8 MG/250 ML-D5W 250 ML IVPB SCH (18:15)
[2024-01-14 19:03] LABS: Lactic Acid 0.9 mmol/L (0.5-2.2)
[2024-01-14] MEDS: Acetaminophen 325 MG TAB PO PRN (19:37)
[2024-01-14] MEDS: Sodium Chloride 0.9% 1,000 ML IV SCH (19:43)
[2024-01-14] MEDS: Vancomycin (BATCH) 1.5 GM in Premix 1 BAG IVPB SCH (19:45)
[2024-01-14] MEDS: Morphine 2 MG/ML VIAL SLOW IVP PRN (20:17)
[2024-01-14 20:24] VITALS: BMI 36.8
[2024-01-14] MEDS: HumaLOG 300 UNITS/3 ML VIAL SC PRN (20:54)
[2024-01-14] MEDS: Famotidine/PF 20 mg/2ml Vial SLOW IVP SCH (20:55)
[2024-01-14] MEDS ORDERED: Vancomycin Dose by Levels Sliding Scale (Wt 71-99) FS SCH (21:00)
[2024-01-14] MEDS ORDERED: Vancomycin 1 GM in Premix 1 BAG IVPB SCH (21:00)
[2024-01-15] MEDS: Pregabalin 75 MG CAP PO SCH ×2 (00:20→09:19)
[2024-01-15] MEDS: traZODone HCl 50 MG TAB PO SCH ×2 (00:22→21:20)
[2024-01-15] MEDS: rOPINIRole HCl 2 MG TAB PO SCH ×2 (00:22→21:20)
[2024-01-15] MEDS: Rosuvastatin 10 MG TAB PO SCH ×2 (00:22→21:20)
[2024-01-15 03:51] LABS: Hematocrit 33.7 % (36.0-47.0); Hemoglobin 10.9 g/dL (12.0-16.0); Manual Diff?? YES; Mean Corpuscular HGB CONC 32.3 g/dL (32.0-36.0); Mean Corpuscular Hemoglobin 29.6 pg (27.0-31.0); Mean Corpuscular Volume 91.6 fl (78.0-98.0); Mean Platelet Volume 10.5 fL (7.4-10.4); Platelet Count 122 10x3/uL (130-400); RBC Distribution Width 14.3 % (11.5-14.5); Red Blood Cell (RBC) Count 3.68 mill/uL (4.20-5.40)
[2024-01-15 03:52] LABS: Delete Auto Diff?? YES
[2024-01-15 04:26] LABS: Band 11 % (5-11); CellaVision Operator ID lab.sh2; Lymphocytes 7 % (21-51); Monocytes 5 % (0-10); Neutrophil 76 % (42-75); Ovalocytes SLIGHT = 2-5 cells HPF (0-1); Platelet Adequacy Comment Platelets Decreased; Polychromasia SLIGHT = 2-3 cells HPF (0-2); Smudge Cells 8.9 %; Total Cell Count 101
[2024-01-15 04:30] LABS: ALT (SGPT) 31 U/L (8-55); AST (SGOT) 32 U/L (5-34); Albumin 2.9 g/dL (3.4-4.8); Alkaline Phosphatase 120 U/L (40-110); Anion Gap 12 mmol/L (10-20); BUN (Urea Nitrogen) 25 mg/dL (9.8-20.1); Bilirubin, Total 1.1 mg/dL (0.2-1.2); Calc. Creatinine Clearance 50 mL/min (70-130); Calcium 7.9 mg/dL (7.8-10.44); Carbon Dioxide 27 mmol/L (23-31); Chloride 105 mmol/L (98-107); Estimated GFR 45; Globulin 2.4 g/dL (2.4-3.5); Glucose 192 mg/dL (83-110); Potassium 3.7 mmol/L (3.5-5.1); Protein, Total 5.3 g/dL (5.8-8.1); Sodium 140 mmol/L (136-145)
[2024-01-15] MEDS: Levothyroxine Sodium 75 MCG TAB PO SCH (06:18)
[2024-01-15] MEDS ORDERED: HumaLOG 300 UNITS/3 ML VIAL SC SCH (07:30)
[2024-01-15] MEDS: Sodium Chloride 0.9% 1,000 ML IV SCH (08:44)
[2024-01-15] MEDS ORDERED: Pregabalin 75 MG CAP PO SCH (09:00)
[2024-01-15] MEDS: Insulin Glargine 30 UNITS/0.3 ML VIAL SC SCH (09:17)
[2024-01-15] MEDS: Enoxaparin 40 MG (0.4 mL) SYRINGE SC SCH (09:18)
[2024-01-15] MEDS: Lidocaine 4% Patch TD SCH (12:56)
[2024-01-15] MEDS: HYDROcodone/Acetaminophen 5/325 mg Tablet PO PRN (14:43)
[2024-01-15] MEDS: Cefepime 1 GM in Sodium Chloride 0.9% 100 ML IVPB SCH (14:44)
[2024-01-15] MEDS: Transdermal Patch Removal TOP SCH (21:25)
[2024-01-16 06:24] LABS: #Eosinphils 0.3 thou/uL (0.0-0.7); #Monocytes 1.3 thou/uL (0.11-0.59); #Neutrophils 7.3 thou/uL (1.40-6.50); %Basophils 0.3 % (0.0-1.0); %Lymphocytes 9.2 % (21.0-51.0); %Monocytes 13.3 % (0.0-10.0); %Neutrophils 73.6 % (42.0-75.0); Hematocrit 34.9 % (36.0-47.0); Hemoglobin 11.1 g/dL (12.0-16.0); Mean Corpuscular HGB CONC 31.8 g/dL (32.0-36.0); Mean Corpuscular Hemoglobin 29.2 pg (27.0-31.0); Mean Corpuscular Volume 91.8 fl (78.0-98.0); Mean Platelet Volume 10.6 fL (7.4-10.4); Platelet Count 113 10x3/uL (130-400); RBC Distribution Width 14.5 % (11.5-14.5); White Blood Cell (WBC) Count 9.9 10x3/uL (4.8-10.8)
[2024-01-16 06:35] LABS: Anion Gap 11 mmol/L (10-20); BUN (Urea Nitrogen) 18 mg/dL (9.8-20.1); Calc. Creatinine Clearance 58 mL/min (70-130); Calcium 8.5 mg/dL (7.8-10.44); Carbon Dioxide 25 mmol/L (23-31); Chloride 107 mmol/L (98-107); Estimated GFR 53; Glucose 152 mg/dL (83-110); Sodium 139 mmol/L (136-145)
[2024-01-16] MEDS: Lidocaine 4% Patch TD SCH (09:08)
[2024-01-16] MEDS ORDERED: Acetaminophen/Codeine 30-300mg Tablet PO PRN ×2 (10:57→10:59)
[2024-01-16] MEDS: Cefepime 1 GM in Sodium Chloride 0.9% 100 ML IVPB SCH (12:22)
[2024-01-16] MEDS: traMADol HCl 50 MG TAB PO PRN (15:14)
[2024-01-16] MEDS: Multivit, Therapeutic 1 TAB PO SCH (20:26)
[2024-01-16] MEDS: Docusate 100 MG CAP PO SCH (20:26)
[2024-01-17 05:27] LABS: #Eosinphils 0.2 thou/uL (0.0-0.7); #Monocytes 1.1 thou/uL (0.11-0.59); #Neutrophils 3.5 thou/uL (1.40-6.50); %Basophils 0.3 % (0.0-1.0); %Eosinophils 3.2 % (0.0-10.0); %Lymphocytes 22.2 % (21.0-51.0); %Neutrophils 55.7 % (42.0-75.0); Hematocrit 31.5 % (36.0-47.0); Hemoglobin 10.2 g/dL (12.0-16.0); Mean Corpuscular HGB CONC 32.4 g/dL (32.0-36.0); Mean Corpuscular Hemoglobin 29.3 pg (27.0-31.0); Mean Corpuscular Volume 90.5 fl (78.0-98.0); Mean Platelet Volume 10.1 fL (7.4-10.4); Platelet Count 111 10x3/uL (130-400); RBC Distribution Width 14.5 % (11.5-14.5); Red Blood Cell (RBC) Count 3.48 mill/uL (4.20-5.40); White Blood Cell (WBC) Count 6.2 10x3/uL (4.8-10.8)
[2024-01-17 05:59] LABS: Anion Gap 10 mmol/L (10-20); BUN (Urea Nitrogen) 14 mg/dL (9.8-20.1); Calc. Creatinine Clearance 69 mL/min (70-130); Calcium 8.2 mg/dL (7.8-10.44); Carbon Dioxide 27 mmol/L (23-31); Chloride 109 mmol/L (98-107); Estimated GFR 65; Glucose 123 mg/dL (83-110); Magnesium 1.6 mg/dL (1.6-2.6); Potassium 3.9 mmol/L (3.5-5.1); Sodium 142 mmol/L (136-145)
[2024-01-17] MEDS: FLU VACC QS2023(65UP)/MF59C/PF 60 MCG/0.5 ML SYRINGE IM ONE (08:45)
[2024-01-18 06:04] LABS: #Eosinphils 0.2 thou/uL (0.0-0.7); #Monocytes 1.1 thou/uL (0.11-0.59); #Neutrophils 4.1 thou/uL (1.40-6.50); %Basophils 0.3 % (0.0-1.0); %Eosinophils 3.4 % (0.0-10.0); %Lymphocytes 21.8 % (21.0-51.0); %Monocytes 16.1 % (0.0-10.0); %Neutrophils 57.4 % (42.0-75.0); Hematocrit 32.8 % (36.0-47.0); Hemoglobin 10.8 g/dL (12.0-16.0); Mean Corpuscular HGB CONC 32.9 g/dL (32.0-36.0); Mean Corpuscular Hemoglobin 29.1 pg (27.0-31.0); Mean Corpuscular Volume 88.4 fl (78.0-98.0); Platelet Count 122 10x3/uL (130-400); RBC Distribution Width 14.5 % (11.5-14.5); Red Blood Cell (RBC) Count 3.71 mill/uL (4.20-5.40); White Blood Cell (WBC) Count 7.1 10x3/uL (4.8-10.8)
[2024-01-18 06:54] LABS: Anion Gap 9 mmol/L (10-20); BUN (Urea Nitrogen) 13 mg/dL (9.8-20.1); Calc. Creatinine Clearance 62 mL/min (70-130); Calcium 8.3 mg/dL (7.8-10.44); Carbon Dioxide 25 mmol/L (23-31); Chloride 108 mmol/L (98-107); Estimated GFR 58; Glucose 121 mg/dL (83-110); Sodium 138 mmol/L (136-145)
[2024-01-18] MEDS: Magnesium 2 GM/50 ML(in water) 2 GM in Premix 1 BAG IVPB SCH (11:21)
[2024-01-19] MEDS: Amoxicillin/Potassium Clav 875 MG TAB PO SCH (08:36)
[2024-01-19 09:18] VITALS: BP 129/84; TEMP 97.9
== END 2024-01-19 12:05 | disposition home health service (06) | DRG 871 ==
LOC: ERS 14:10 → CCU 17:06 → T4-A 01-15 10:05
PROVIDERS: ADMIT Internal Medicine; ATTEND Internal Medicine
PROC: 02HV33Z Insertion of Infusion Device into Superior Vena Cava, Percutaneous Approach (ICD-10-PCS; principal; 2024-01-14)
PROC: 3E043XZ Introduction of Vasopressor into Central Vein, Percutaneous Approach (ICD-10-PCS; 2024-01-14)
DX: A41.51 Sepsis due to Escherichia coli [E. coli] (principal); R65.21 Severe sepsis with septic shock; I13.0 Hypertensive heart and chronic kidney disease with heart failure and stage 1 through stage 4 chronic kidney disease, or unspecified chronic kidney disease; I50.32 Chronic diastolic (congestive) heart failure; N17.9 Acute kidney failure, unspecified; N12 Tubulo-interstitial nephritis, not specified as acute or chronic; E03.9 Hypothyroidism, unspecified; E78.5 Hyperlipidemia, unspecified; K21.9 Gastro-esophageal reflux disease without esophagitis; G47.00 Insomnia, unspecified; E11.22 Type 2 diabetes mellitus with diabetic chronic kidney disease; N18.30 Chronic kidney disease, stage 3 unspecified; D69.59 Other secondary thrombocytopenia; E83.42 Hypomagnesemia; Z96.652 Presence of left artificial knee joint; E11.42 Type 2 diabetes mellitus with diabetic polyneuropathy; E66.01 Morbid (severe) obesity due to excess calories; Z68.36 Body mass index [BMI] 36.0-36.9, adult; Z79.4 Long term (current) use of insulin; Z79.899 Other long term (current) drug therapy; Z90.49 Acquired absence of other specified parts of digestive tract; Z98.51 Tubal ligation status
CPT/HCPCS: 36415; 36416; 36556; 51701; 71045; 74176; 80048; 80053; 81001; 83605; 83735; 85025; 87040; 87077; 87086; 87149; 87186; 90471; 90694; 93005; 94760; 96361; 96365; 96367; G0008; J0692; J0696; J1650; J1815; J2270; J2272; J3010; J3370; J3475; J3490; J7050; S0028

== ENCOUNTER 2024-10-16 09:27 | Emergency (ER) | payer OTHER ==
[2024-10-16 10:49] LABS: #Basophils 0.03 10x3/uL (0.0-0.2); %Basophils 0.5 % (0.0-1.0); %Eosinophils 1.4 % (0.0-10.0); %Monocytes 10.2 % (0.0-10.0); %Neutrophils 56.6 % (42.0-75.0); Hematocrit 40.8 % (36.0-47.0); Hemoglobin 13.6 g/dL (12.0-16.0); Mean Corpuscular HGB CONC 33.3 g/dL (32.0-36.0); Mean Corpuscular Hemoglobin 29.7 pg (27.0-31.0); Mean Corpuscular Volume 89.1 fL (78.0-98.0); Mean Platelet Volume 10.1 fL (7.4-10.4); Platelet Count 202 10x3/uL (130-400); Red Blood Cell (RBC) Count 4.58 mill/uL (4.20-5.40)
[2024-10-16 11:00] LABS: Bacteria/HPF None Seen HPF (None Seen); Bilirubin Negative (Negative); Blood, Urine Negative (Negative); CAUTI Indications for Culture Alt mental st,lethar; Clarity Clear (Clear); Glucose, Urine (Dipstick) Greater than 1000 mg/dL (Negative); Ketone, Urine Negative (Negative); Leukocyte Negative Leu/uL (Negative); Nitrite Negative (Negative); Protein, Urine (Dipstick) Negative (Neg-Trace); RBC/HPF 0-3 HPF (0-3); Specific Gravity, Urine 1.012 (1.002-1.036); Squamous Epithelial 0-3 HPF (0-3); Urobilinogen Normal mg/dL (Less than 2); WBC/HPF 0-3 HPF (0-3)
[2024-10-16] MEDS ORDERED: Acetaminophen 500 MG TAB ONE (11:05)
[2024-10-16] MEDS ORDERED: Bupivacaine 0.5% 10 ML VIAL ONE (11:05)
[2024-10-16 11:09] LABS: Urine Culture Reflex No No
[2024-10-16 11:13] LABS: Troponin I Less than 0.010 ng/mL (< 0.028)
[2024-10-16 11:28] LABS: ALT (SGPT) 31 U/L (8-55); AST (SGOT) 40 U/L (5-34); Albumin 3.6 g/dL (3.4-4.8); Alkaline Phosphatase 171 U/L (40-110); Anion Gap 16 mmol/L (10-20); BUN (Urea Nitrogen) 23 mg/dL (9.8-20.1); Bilirubin, Total 0.3 mg/dL (0.2-1.2); Calc. Creatinine Clearance 0 mL/min (70-130); Carbon Dioxide 28 mmol/L (23-31); Chloride 97 mmol/L (98-107); Estimated GFR 43; Globulin 3.4 g/dL (2.4-3.5); Glucose 185 mg/dL (83-110); Sodium 137 mmol/L (136-145)
== END 2024-10-16 12:38 | disposition home or self-care (01) ==
LOC: ERS 09:27
DX: S01.81XA Laceration without foreign body of other part of head, initial encounter (principal); S05.12XA Contusion of eyeball and orbital tissues, left eye, initial encounter; S05.11XA Contusion of eyeball and orbital tissues, right eye, initial encounter; S01.21XA Laceration without foreign body of nose, initial encounter; I12.9 Hypertensive chronic kidney disease with stage 1 through stage 4 chronic kidney disease, or unspecified chronic kidney disease; E11.22 Type 2 diabetes mellitus with diabetic chronic kidney disease; N18.9 Chronic kidney disease, unspecified; Z79.4 Long term (current) use of insulin; Z79.85 Long-term (current) use of injectable non-insulin antidiabetic drugs; W22.09XA Striking against other stationary object, initial encounter; R07.9 Chest pain, unspecified
CPT/HCPCS: 12013; 70450; 70486; 71045; 72125; 80053; 81001; 82962; 83605; 84484; 85025; 93005; 94760; 99285; J3490; 36415; 36416